=== PATIENT | female | born 1970 | race Caucasian/White ===

== ENCOUNTER 2018-06-01 11:41 | Emergency (ER) | payer MEDICARE, MEDICAID ==
[~2018-06-01] VITALS: Ht 165.1 cm; Wt 74.5 kg
[~2018-06-01 11:41] MED LIST: BACL20TA PO; NORCO 7.5/325MG PO; TRAZ-218 PO; ZOLP10TA PO
[2018-06-01 11:46] VITALS: BP 125/81
== END 2018-06-01 14:30 | disposition left against medical advice (07) ==
LOC: ER 11:41
DX: M54.5 Low back pain (principal); Z53.21 Procedure and treatment not carried out due to patient leaving prior to being seen by health care provider

== ENCOUNTER 2019-05-09 14:56 | Emergency (ER) | payer MEDICARE, MEDICAID ==
[~2019-05-09] VITALS: Ht 165.1 cm; Wt 68.2 kg
[~2019-05-09 14:56] MED LIST changes: -TRAZ-218 PO; +TRAZ-251 PO
[2019-05-09] MEDS ORDERED: normal saline 1000ML IV soln IV ONE (15:40)
[2019-05-09] MEDS ORDERED: ondansetron/PF 4mg/2ml inj IV ONE (15:40)
[2019-05-09] MEDS ORDERED: normal saline 1000ML IV soln IVB ONE (15:40)
[2019-05-09] MEDS: morphine 4 MG/ML inj SYRINge IV PRN ×2 (15:54→16:37)
[2019-05-09 16:01] LABS: BASOPHILS # (AUTO) 0.1 X10'3 (0-0.2); BASOPHILS % (AUTO) 1.3 % (0-1); EOSINOPHILS # (AUTO) 0.2 X10'3 (0-0.9); EOSINOPHILS % (AUTO) 1.9 % (0-6); HEMATOCRIT 32.7 % (35.0-45.0); HEMOGLOBIN 11.3 g/dl (12.0-16.0); LYMPHOCYTES # (AUTO) 2.1 X10'3 (1.1-4.8); LYMPHOCYTES % (AUTO) 22.2 % (21-51); MEAN CORPUSCULAR HEMOGLOBIN 31.5 PG (27.0-31.0); MEAN CORPUSCULAR HGB CONC 34.6 g/dL (33.0-36.5); MEAN CORPUSCULAR VOLUME 91.1 FL (78-98); MEAN PLATELET VOLUME 6.9 FL (7.4-10.4); MONOCYTES # (AUTO) 0.6 X10'3 (0-0.9); MONOCYTES % (AUTO) 6.4 % (2-12); NEUTROPHILS # (AUTO) 6.6 X10'3 (1.8-7.7); NEUTROPHILS % (AUTO) 68.2 % (42-75); PLATELET COUNT 322 X10'3 (140-440); RED BLOOD COUNT 3.59 X10'6 (4.20-5.60); RED CELL DISTRIBUTION WIDTH 13.9 % (11.5-14.5); WHITE BLOOD COUNT 9.6 X10'3 (4.5-11.0)
[2019-05-09 16:13] LABS: PARTIAL THROMBOPLASTIN TIME 27 SECONDS (22-32)
[2019-05-09 16:29] LABS: ALANINE AMINOTRANSFERASE 23 U/L (12-78); ALBUMIN 3.7 G/DL (3.4-5.0); ALKALINE PHOSPHATASE 132 IU/L (46-116); ANION GAP 11 (8-16); ASPARTATE AMINO TRANSFERASE 17 U/L (10-37); BILIRUBIN,TOTAL 0.4 MG/DL (0.1-1.0); BLOOD UREA NITROGEN 21 MG/DL (7-18); BUN/CREATININE RATIO 17.8 (6.6-38.0); CALCIUM 10.3 MG/DL (8.5-10.1); CHLORIDE 105 MMOL/L (99-107); CREATININE 1.18 MG/DL (0.40-0.90); GLUCOSE 68 MG/DL (70-104); POTASSIUM 3.8 MMOL/L (3.5-5.1); SODIUM 141 MMOL/L (135-145); TOTAL CARBON DIOXIDE 24.6 MMOL/L (24-32); TOTAL PROTEIN 7.3 G/DL (6.4-8.2); eGFR 48 ML/MIN
[2019-05-09] MEDS ORDERED: morphine 4 MG/ML inj SYRINge IV ONE (16:45)
[2019-05-09] MEDS ORDERED: oxyCODONE/APAP 5-325mg tablet PO ONE ×2 (17:00→21:55)
[2019-05-09 17:25] LABS: C-REACTIVE PROTEIN 1.49 MG/DL (0.0-0.5)
--- NOTE | 2019-05-09 22:41 | NUR ---
report was called Maria Luisa NAVARRETE at [address] [place] [address]
[2019-05-10 00:23] VITALS: BP 135/85
== END 2019-05-10 00:28 | disposition short-term general hospital (02) ==
LOC: ER 14:56
DX: T81.30XA Disruption of wound, unspecified, initial encounter (principal); M54.6 Pain in thoracic spine; M54.5 Low back pain; G89.29 Other chronic pain; G43.909 Migraine, unspecified, not intractable, without status migrainosus; F10.99 Alcohol use, unspecified with unspecified alcohol-induced disorder; R79.1 Abnormal coagulation profile; Z90.710 Acquired absence of both cervix and uterus; Z98.890 Other specified postprocedural states; Z79.899 Other long term (current) drug therapy; Z85.43 Personal history of malignant neoplasm of ovary; Y83.8 Other surgical procedures as the cause of abnormal reaction of the patient, or of later complication, without mention of misadventure at the time of the procedure; Y92.89 Other specified places as the place of occurrence of the external cause; Y90.9 Presence of alcohol in blood, level not specified
CPT/HCPCS: 36415; 72131; 80053; 83605; 84145; 85025; 85610; 85730; 86140; 96374; 96375; 99285; J2270; J2405; J7030

== ENCOUNTER 2023-07-27 10:25 | Emergency (ER) | payer MEDICARE, MEDICAID ==
[~2023-07-27] VITALS: Ht 165.1 cm; Wt 70.8 kg
[2023-07-27 10:46] VITALS: BP 164/98; PULSE 111; RESP 16; TEMP 98; O2SAT 99
[2023-07-27] MEDS ORDERED: IBUP-1984 PO (11:41)
[2023-07-27] MEDS ORDERED: AMOX-117 PO (11:41)
[2023-07-27] MEDS: ibuprofen tablet 400 MG TABLET PO ONE (11:48)
[2023-07-27] MEDS: amox tr/potassium clavulanate 875/125mg TAB PO ONE (11:49)
== END 2023-07-27 11:57 | disposition home or self-care (01) ==
LOC: ER 10:25
DX: H66.92 Otitis media, unspecified, left ear (principal); G89.29 Other chronic pain; M54.9 Dorsalgia, unspecified; Z85.43 Personal history of malignant neoplasm of ovary; Z90.710 Acquired absence of both cervix and uterus; G43.909 Migraine, unspecified, not intractable, without status migrainosus
CPT/HCPCS: 99283

== ENCOUNTER 2025-04-15 13:17 | Emergency (ER) | payer BC, MEDICAID ==
[~2025-04-15] VITALS: Ht 165.1 cm; Wt 69.2 kg
[~2025-04-15 13:17] MED LIST changes: +ZOLP-679 PO; -ZOLP10TA PO
[2025-04-15 13:22] VITALS: BP 121/77; PULSE 124; RESP 16; TEMP 100.7; O2SAT 96
[2025-04-15 13:50] LABS: INFLUENZA TYPE A ANTIGEN RAPID POSITIVE (Negative); INFLUENZA TYPE B ANTIGEN RAPID NEGATIVE (Negative)
--- NOTE | 2025-04-15 13:58 | RADIOLOGY REPORT ---
CHEST RADIOGRAPH INDICATION: cough TECHNIQUE: Single frontal view of the chest was obtained COMPARISON: None FINDINGS: Lines and Tubes: None Lungs: Clear Pleura: No effusion. No pneumothorax. Cardiomediastinal contours: Unremarkable Bones: Limited visualization of orthopedic hardware appear intact. IMPRESSION: 1. No radiographic evidence of acute cardiopulmonary abnormality.
[2025-04-15] MEDS ORDERED: ALBU8HFA INH (14:34)
[2025-04-15] MEDS ORDERED: BENZ-38 PO (14:34)
--- NOTE | 2025-04-15 14:34 | Physician Documentation ---
History of Present Illness ~ Chief Complaint: Cold, cough & congestion Stated Complaint: COUGH AND COLD SYMPTOMS Time Seen by MD: 14:06 OK to notify your PCP?: Yes Primary Medical Doctor: PCP IN [place], [place] Source: patient Mode of Arrival: POV Exam Limitations: no limitations HPI Patient reports that she has been having fevers, cold cough and congestion for the past week. She does have a history of having a partially collapsed lung on the left side which she says sometimes sounds wheezy. He has been taking [id number] medications for her symptoms last dose was last night. Has a history of COPD, reports she has a history of asthma as a child. Medication Reconciliation Allergies: Coded Allergies: No Known Allergies (Unverified , 01/21/14) Scheduled Baclofen (Baclofen), 1 TABLET PO TID, (Reported) Benzonatate* (Benzonatate*), 1 CAP PO BID Trazodone HCl (Trazodone HCl), 1 TABLET PO HS, (Reported) Zolpidem Tartrate (Ambien), 1 TABLET PO HS, (Reported) [[place] 7.5/325MG], PO Q6H, (Reported) Scheduled PRN albuterol inhaler (Pro-Air Inhaler), 2 PUFFS INH Q4HPRN PRN for wheezing Past Medical History Past Medical History: Migraine, *RENAL/*, Chronic Pain, Chronic Back Pain, Ovarian Cancer Past Surgical History: hysterectomy, orthopedic surgeries Other Past Surgical History: removal of ovarian cancerm, back surgery Alcohol Use: Occasionally Drug Use: none Lives with: Family Lives In: Home Review of Systems All Other Systems at this time: Reviewed and Negative Physical Exam Vital Signs: RN Vital Signs have been reviewed: Yes, Temperature: 100.7, Source: Oral, Heart Rate: 124, Respiratory Rate: 16, BP: 121/77, Pulse Oximetry: 96, Weight: 69.200 Oxygen Flow Rate: 0 Pulse Oximetry Reflects: adequate oxygenation Physical Exam General: Alert, no apparent distress. HEENT: PERRL, EOMI, no injection, moist mucous membranes. Neck: Full range of motion. Respiratory: no respiratory distress. Wheezes in left lower lung otherwise no adventitious breath sounds Chest: No accessory muscle use. Cardiovascular: Regular rate and rhythm, no murmurs. Gastrointestinal: Soft, nontender, nondistended. Bowels sounds present. Extremities: Normal range of motion, no deformity. Neurologic: Oriented x4. Psychiatric: Normal mood and affect. Skin: Normal color, warm and dry. No edema, no ecchymosis. Progress Results/Orders Reviewed/noted all lab results: Yes Results/Orders Vital Signs 04/15/25 13:22 Temp 100.7 Pulse 124 Resp 16 B/P (MAP) 121/77 Pulse Ox 96 O2 Flow Rate 0 Laboratory Tests Test 04/15/25 13:26 Influenza Type A Antigen Positive Influenza Type B Antigen Negative SARS-CoV-2 Antigen (Rapid) Negative EKG/XRAY/CT/US/VASC/MRI Chest X-Ray : Additional Comments Chest x-ray: as interpreted by me; no large effusion, no large infiltrate, normal mediastinum. Medical Decision Making Additional information obtaine: old records Findings Patient reports having respiratory symptoms for the past week. She was positive for flu A. Her x-ray was negative for pneumonia. She is wheezing to the left base but she states that this is normal for her. She does report having some shortness of breath from time to time. I prescribed an inhaler. She reports that she has a cough that keeps her up at night and she would like something to help lessen this cough. I prescribed Tessalon Perles. Patient was given discharge instructions as well follow up instructions. Differential Dx:Considerations: Include: Otitis media, Peritonsillar abscess, Pharyngitis-Diphtheria, Pharyngitis-Viral, Pneumonia, Pnuemonitis, Sinusitis Departure Disposition: HOME / SELF CARE / HOMELESS Impression: Primary Impression: Cough Additional Impression: Influenza A Condition: Stable Discharge Instructions: Cough, Adult, Influenza, Adult, [id number] Additional Instructions: You are positive for influenza A. As discussed you have a viral illness. Unfortunately there are no specific medications we can give you to make the illness and faster. Antibiotics do not work for viral illnesses. However, you can take acetaminophen or ibuprofen to help with fevers and pain. Stay well hydrated and rested. Return to the emergency department if your fevers and chills continue to worsen after 5 days, if you develop worsening cough with thick sputum, are unable to stay hydrated, or have any new or concerning concerning symptoms. Contact your primary care provider in the next 2-3 days for re-evaluation and to make sure your symptoms are improving. Referrals: NO PRIMARY CARE PROVIDER (PCP) Prescriptions Benzonatate* (Benzonatate*) 100 Mg Capsule 1 CAP PO BID for cough for 10 Days, #20 CAP Prov: KIRSTY MARMOLEJO 04/15/25 albuterol inhaler (Pro-Air Inhaler) 8.5 Gm Inhaler 2 PUFFS INH Q4HPRN PRN for wheezing for 30 Days, #18 GM Prov: KIRSTY MARMOLEJO 04/15/25 Education Educated: Patient Educated regarding: diagnosis, treatment, prognosis, need for follow up Additional Comment Medical Screen Exam This patient recieved a medical screening examination. After reviewing the individual's medical complaints with presenting symptoms and performing an appropriate physical examination, it was determined that no immediate life- threatening emergency medical condition is present. This individual is also not a women having contractions. Signature Scribe Signature: . Attestation: Scribed for Kirsty Marmolejop by Kirsty Padilla NP . 04/15/25 14:31 Parts of this note were created using [employer] voice recognition software program. While efforts were made to correct any mistakes made by this voice recognition software program, nonsensical phrases may remain in this note. In addition, there may be errors and syntax, grammar, content and spelling. KIRSTY MARMOLEJO Apr 15, 2025 14:34
== END 2025-04-15 15:05 | disposition home or self-care (01) ==
LOC: ER 13:18
DX: J10.1 Influenza due to other identified influenza virus with other respiratory manifestations (principal); J44.9 Chronic obstructive pulmonary disease, unspecified; G89.29 Other chronic pain; G43.909 Migraine, unspecified, not intractable, without status migrainosus; Z85.43 Personal history of malignant neoplasm of ovary; Z87.09 Personal history of other diseases of the respiratory system; Z90.710 Acquired absence of both cervix and uterus; Z79.899 Other long term (current) drug therapy; Z72.89 Other problems related to lifestyle; Z98.890 Other specified postprocedural states; Z20.822 Contact with and (suspected) exposure to COVID-19
CPT/HCPCS: 36415; 71045; 87804; 87811; 99284